=== PATIENT | female | born 1965 | race Caucasian/White ===

== ENCOUNTER 2018-04-17 13:04 | Emergency (ER) | payer MEDICARE ==
[~2018-04-17] VITALS: Ht 172.7 cm; Wt 86.4 kg
[~2018-04-17 13:04] MED LIST: AMITRIPTYLINE100 MG PO; HYDROCODONE-APA1 TAB PO; KEFLEX500 MG PO; MONODOX100 MG PO; RISPERDAL2 MG PO; VIBRAMYCIN 100100 MG PO; XANAX2 MG PO
[2018-04-17 13:07] VITALS: Ht 172.7 cm; Wt 86.4 kg
[2018-04-17 13:37] LABS: EOSINOPHILS 6.7 % (0-7); HEMATOCRIT 37.5 % (36.0-48.0); HEMOGLOBIN 11.7 g/dL (12-16); IMMATURE GRANULOCYTES 0.4 % (0-5); MCH 27.1 pg (26.0-34.0); MCHC 31.2 g/dL (31.0-37.0); MEAN PLATELET VOLUME 9.9 fL (7.4-10.4); MONOCYTES 14.9 % (2-11); RBC 4.31 10x6/uL (4.00-5.40); RDW 14.1 % (11.5-14.5); WBC 8.2 10x3/uL (4.8-10.8)
[2018-04-17 13:49] LABS: PLATELET COUNT 206 10x3/uL (130-400)
[2018-04-17 14:18] LABS: ALBUMIN 2.8 g/dL (3.4-5.0); ALKALINE PHOSPHATASE 126 U/L (46-116); ALT (SGPT) 30 U/L (10-68); BILIRUBIN - TOTAL 0.26 mg/dL (0.2-1.3); CALC OSMOLALITY 277 mosm/kg (275-300); CALCIUM 9.3 mg/dL (8.5-10.1); CARBON DIOXIDE 31.9 mmol/L (21.0-32.0); CHLORIDE - SERUM 103 mmol/L (98-107); CREATININE - SERUM 0.7 mg/dL (0.6-1.3); GLUCOSE 95 mg/dL (74-106); POTASSIUM - SERUM 4.1 mmol/L (3.5-5.1); PROTEIN - SERUM 7.6 g/dL (6.4-8.2); SODIUM 139 mmol/L (136-145); UREA NITROGEN 13 mg/dL (7-18); eGFR NON AFRICAN AMERICAN > 90 mL/min (90-120)
[2018-04-17 15:00] VITALS: BP 150/84
[2018-04-17] MEDS ORDERED: CLEOCIN HCL300 MG PO (15:47)
[2018-04-17 17:48] VITALS: BP 104/72
== END 2018-04-17 17:50 | disposition left against medical advice (07) ==
LOC: D.ER 13:04 → D.EDHOLD 15:01 → D.ER 15:01
PROVIDERS: Emergency Medicine
DX: L03.115 Cellulitis of right lower limb (principal); M79.671 Pain in right foot; B19.20 Unspecified viral hepatitis C without hepatic coma; Z86.59 Personal history of other mental and behavioral disorders; F17.200 Nicotine dependence, unspecified, uncomplicated

== ENCOUNTER 2018-07-30 17:56 | Emergency (ER) | payer MEDICARE ==
[~2018-07-30] VITALS: Ht 172.7 cm; Wt 100.0 kg
[~2018-07-30 17:56] MED LIST changes: +CLEOCIN HCL300 MG PO
[2018-07-30 17:59] VITALS: Ht 172.7 cm; Wt 100.0 kg
[2018-07-30 18:42] LABS: BASOPHILS 1.2 % (0-2); HEMATOCRIT 35.7 % (36.0-48.0); HEMOGLOBIN 11.3 g/dL (12-16); IMMATURE GRANULOCYTES 0.3 % (0-5); MCH 27.1 pg (26.0-34.0); MCHC 31.7 g/dL (31.0-37.0); MCV 85.6 fL (80.0-100.0); MEAN PLATELET VOLUME 9.9 fL (7.4-10.4); MONOCYTES 10.1 % (2-11); NEUTROPHILS 42.4 % (40-80); RBC 4.17 10x6/uL (4.00-5.40); RDW 14.6 % (11.5-14.5); WBC 6.4 10x3/uL (4.8-10.8)
[2018-07-30 19:07] LABS: PLATELET COUNT 335 10x3/uL (130-400)
[2018-07-30 19:43] LABS: ALBUMIN 2.8 g/dL (3.4-5.0); ALKALINE PHOSPHATASE 214 U/L (46-116); ALT (SGPT) 98 U/L (10-68); BILIRUBIN - TOTAL 0.02 mg/dL (0.2-1.3); CALC OSMOLALITY 278 mosm/kg (275-300); CARBON DIOXIDE 31.5 mmol/L (21.0-32.0); CHLORIDE - SERUM 104 mmol/L (98-107); CREATININE - SERUM 0.7 mg/dL (0.6-1.3); GLUCOSE 105 mg/dL (74-106); SODIUM 141 mmol/L (136-145); UREA NITROGEN 8 mg/dL (7-18); URIC ACID 4.6 mg/dL (2.6-7.2); eGFR NON AFRICAN AMERICAN > 90 mL/min (90-120)
[2018-07-30] MEDS ORDERED: NORCO 7.5/325 T1 TA1 PO ×2 (19:56→19:57)
[2018-07-30] MEDS ORDERED: KEFLEX500 MG PO (19:57)
[2018-07-30 20:40] VITALS: BP 113/62
== END 2018-07-30 20:40 | disposition home or self-care (01) ==
LOC: D.ER 17:56
PROVIDERS: Emergency Medicine; Family Medicine
DX: M70.22 Olecranon bursitis, left elbow (principal); Y93.89 Activity, other specified; L03.90 Cellulitis, unspecified; I50.9 Heart failure, unspecified; F17.200 Nicotine dependence, unspecified, uncomplicated

== ENCOUNTER → 2020-12-30 11:14 | Outpatient (CLI) | payer MEDICARE ==
[2018-07-30 17:59] VITALS: BMI 33.5
--- NOTE | 2020-12-27 15:29 | NUR ---
ATTEMPTED TO CALL NUMBER PROVIDED TO CONFIRM APPT ON WEDNESDAY - UNSUCCESSFUL
[~2020-12-30 11:14] MED LIST changes: +NORCO 7.5/325 T1 TA1 PO; +SEROQUEL400 MG
== END | disposition home or self-care (01) ==
LOC: D.RAD 11:14
PROVIDERS: ATTEND Nurse Practitioner Family
DX: M16.11 Unilateral primary osteoarthritis, right hip (principal)

== ENCOUNTER 2020-12-30 12:39 | Inpatient (IN) | payer MEDICARE ==
[~2020-12-30] VITALS: Ht 172.7 cm; Wt 100.0 kg
[~2020-12-30 12:39] MED LIST changes: -SEROQUEL400 MG
[2020-12-30 13:35] LABS: BASOPHILS 0.6 % (0-2); EOSINOPHILS 2.5 % (0-7); HEMATOCRIT 27.9 % (36.0-48.0); HEMOGLOBIN 7.6 g/dL (12-16); IMMATURE GRANULOCYTES 0.2 % (0-5); LYMPHOCYTE ABS# 1.97 10x3/uL (1.18-3.74); LYMPHOCYTES 22.5 % (15-50); MCHC 27.2 g/dL (31.0-37.0); MEAN PLATELET VOLUME 9.3 fL (7.4-10.4); MONOCYTES 15.3 % (2-11); NEUTROPHIL ABS# 5.16 10x3/uL (1.56-6.13); NEUTROPHILS 58.9 % (40-80); PLATELET COUNT 319 10x3/uL (130-400); RBC 4.23 10x6/uL (4.00-5.40); RDW 19.3 % (11.5-14.5); WBC 8.8 10x3/uL (4.8-10.8)
[2020-12-30 13:41] LABS: CALC OSMOLALITY 271 mosm/kg (275-300); CALCIUM 9.2 mg/dL (8.5-10.1); CARBON DIOXIDE 30.5 mmol/L (21.0-32.0); CHLORIDE - SERUM 101 mmol/L (98-107); CREATININE - SERUM 0.8 mg/dL (0.6-1.3); GLUCOSE 101 mg/dL (74-106); POTASSIUM - SERUM 3.3 mmol/L (3.5-5.1); SODIUM 136 mmol/L (136-145); UREA NITROGEN 12 mg/dL (7-18); eGFR NON AFRICAN AMERICAN 79 mL/min (90-120)
[2020-12-30 13:51] LABS: APTT 30.2 SECONDS (22.8-39.4); INR 1.11 (0.85-1.17); PROTIME 13.3 SECONDS (11.6-15.0)
[2020-12-30 13:55] LABS: D-DIMER-QUANTITATIVE 1.59 ug/mLFEU (0.20-0.54)
[2020-12-30 13:59] LABS: ALBUMIN 2.5 g/dL (3.4-5.0); ALKALINE PHOSPHATASE 209 U/L (30-120); ALT (SGPT) 33 U/L (10-68); BILIRUBIN - TOTAL 0.35 mg/dL (0.2-1.3); CREATINE KINASE 36 UL (21-215); PROTEIN - SERUM 8.4 g/dL (6.4-8.2); TROPONIN-I < 0.017 ng/mL (0.000-0.060)
[2020-12-30 15:53] VITALS: BP 100/49
--- NOTE | 2020-12-30 16:25 | NUR ---
PT ARRIVED VIA WHEELCHAIR AT THIS TIME FROM ER WITH TRANSFER STAFF. ALL BELONGINGS WITH PT TIME OF ARRIVAL. RR EVEN NON LABORED ON ROOM AIR. PT AWAKE AND ALERT, APPEARS DROWSY. PT ANSWERS QUESTIONS APPROP. IV INFUSING WITHOUT DIFFICULTY. LLE REDDENED, SWOLLEN AND TENDER TO TOUCH. NO NEEDS VOICED AT THIS TIME. MEDS GIVEN PER EMAR. CLWR. WILL CONTINUE TO MONITOR
[2020-12-30 16:48] VITALS: BP 104/55; Ht 172.7 cm; Wt 100.0 kg
[2020-12-30] MEDS ORDERED: SEROQUEL400 MG (17:03)
[2020-12-30 18:09] LABS: IRON 11 ug/dl (35-150)
[2020-12-30 18:10] LABS: % SATURATION 3 % (15-55); TOTAL IRON BIND CAPACITY 336 ug/dl (260-445); UNSAT IRON BIND CAPACITY 325 ug/dl (150-375)
[2020-12-30 20:17] LABS: ERYTHROCYTE SEDIMENTATION RATE 77 mm/hr (0-30)
[2020-12-30 21:36] VITALS: BP 95/42
--- NOTE | 2020-12-30 23:30 | NUR ---
I have reviewed this patient and I concur with the Shift Assessment completed by the Licensed Practical Nurse today this shift.
--- NOTE | 2020-12-31 01:00 | NUR ---
ELEVATED TEMP. REFUSED PRN TYLENOL, STATES SHE HAS HEP C. REQUESTS XANAX AND MORPHINE. INFORMED PT BP HAS BEEN LOW THROUGHOUT SHIFT AND CANNOT HAVE PRN MEDICATION THAT MAY LOWER IT FURTHER
[2020-12-31 01:23] VITALS: BP 102/42
[2020-12-31 04:00] VITALS: BP 115/56
[2020-12-31 06:21] LABS: ALBUMIN 2.1 g/dL (3.4-5.0); ALKALINE PHOSPHATASE 251 U/L (30-120); BILIRUBIN - TOTAL 0.26 mg/dL (0.2-1.3); CALC OSMOLALITY 274 mosm/kg (275-300); CALCIUM 8.5 mg/dL (8.5-10.1); CHLORIDE - SERUM 102 mmol/L (98-107); CREATININE - SERUM 0.7 mg/dL (0.6-1.3); GLUCOSE 96 mg/dL (74-106); PHOSPHOROUS 3.7 mg/dL (2.5-4.9); PROTEIN - SERUM 7.2 g/dL (6.4-8.2); SODIUM 138 mmol/L (136-145); UREA NITROGEN 9 mg/dL (7-18); eGFR NON AFRICAN AMERICAN > 90 mL/min (90-120)
[2020-12-31 06:22] LABS: ALT (SGPT) 42 U/L (10-68); POTASSIUM - SERUM 3.9 mmol/L (3.5-5.1)
[2020-12-31 06:51] LABS: BASOPHILS 0.6 % (0-2); EOSINOPHILS 3.2 % (0-7); HEMATOCRIT 25.4 % (36.0-48.0); IMMATURE GRANULOCYTES 0.3 % (0-5); LYMPHOCYTE ABS# 2.01 10x3/uL (1.18-3.74); LYMPHOCYTES 21.4 % (15-50); MCHC 26.8 g/dL (31.0-37.0); MCV 66.7 fL (80.0-100.0); MEAN PLATELET VOLUME 9.4 fL (7.4-10.4); MONOCYTES 15.1 % (2-11); NEUTROPHIL ABS# 5.57 10x3/uL (1.56-6.13); NEUTROPHILS 59.4 % (40-80); PLATELET COUNT 321 10x3/uL (130-400); RBC 3.81 10x6/uL (4.00-5.40); RDW 19.4 % (11.5-14.5); WBC 9.4 10x3/uL (4.8-10.8)
[2020-12-31 06:53] LABS: HEMOGLOBIN 6.8 g/dL (12-16); MCH 17.8 pg (26.0-34.0)
[2020-12-31 10:27] VITALS: BP 113/64
[2020-12-31 13:58] VITALS: BP 117/59
[2020-12-31 18:31] VITALS: BP 127/66
[2020-12-31 20:00] VITALS: BP 112/54
[2021-01-01 02:02] VITALS: BP 111/52
[2021-01-01 06:34] VITALS: BP 135/62
--- NOTE | 2021-01-01 06:58 | NUR ---
Patient received her second unit of PRBC's this shift, she tolerated it well, she appeared to rest well through the night. Pain was managed with the prescribed pain medication. She is currently resting in bed with her eyes closed.
[2021-01-01 07:45] LABS: ALBUMIN 2.2 g/dL (3.4-5.0); ALKALINE PHOSPHATASE 376 U/L (30-120); ALT (SGPT) 48 U/L (10-68); CALC OSMOLALITY 271 mosm/kg (275-300); CALCIUM 8.6 mg/dL (8.5-10.1); CHLORIDE - SERUM 102 mmol/L (98-107); CREATININE - SERUM 0.8 mg/dL (0.6-1.3); GLUCOSE 89 mg/dL (74-106); MAGNESIUM - SERUM 1.9 mg/dL (1.8-2.4); PHOSPHOROUS 3.3 mg/dL (2.5-4.9); POTASSIUM - SERUM 3.9 mmol/L (3.5-5.1); PROTEIN - SERUM 7.2 g/dL (6.4-8.2); SODIUM 138 mmol/L (136-145); eGFR NON AFRICAN AMERICAN 79 mL/min (90-120)
[2021-01-01 07:58] LABS: UREA NITROGEN 5 mg/dL (7-18)
[2021-01-01 08:14] VITALS: BP 138/66
[2021-01-01 10:59] LABS: BASOPHILS 0.8 % (0-2); EOSINOPHILS 3.9 % (0-7); IMMATURE GRANULOCYTES 1.1 % (0-5); LYMPHOCYTE ABS# 1.74 10x3/uL (1.18-3.74); LYMPHOCYTES 20.7 % (15-50); MCH 20.3 pg (26.0-34.0); MCHC 29.4 g/dL (31.0-37.0); MEAN PLATELET VOLUME 9.4 fL (7.4-10.4); MONOCYTES 11.6 % (2-11); NEUTROPHIL ABS# 5.19 10x3/uL (1.56-6.13); NEUTROPHILS 61.9 % (40-80); PLATELET COUNT 317 10x3/uL (130-400); RDW 21.9 % (11.5-14.5); WBC 8.4 10x3/uL (4.8-10.8)
[2021-01-01 11:03] LABS: HEMATOCRIT 32.3 % (36.0-48.0); HEMOGLOBIN 9.5 g/dL (12-16); RBC 4.68 10x6/uL (4.00-5.40)
[2021-01-01 11:48] VITALS: BP 133/68
[2021-01-01 15:42] VITALS: BP 129/67
--- NOTE | 2021-01-01 16:02 | NUR ---
SUMMONED TO PATIENT ROOM BY STAFF FOR SMELL OF SMOKE. PT DENIED SMOKING IN HER ROOM. SEARCH OF PATIET BELONINGS WITH WITNESS COMPENSATED CIGARETTES AND HEATING FIXTURE TENDER LABELED AND PLACED IN CASSETTE.
--- NOTE | 2021-01-01 16:32 | NUR ---
INFORMED BY PATIENT THAT HER BROTHER TESTED POSITIVE FOR COVID TODAY AND HE ACTUALLY BROUGHT HER TO THE HOSPITAL AND VISITED HER YESTERDAY EVENING DURING VISITATION HOURS. PT DENIES ANY COUGH SOB HEADACHE NO FEVER. NOTIFIED [id number] CONTROL AND NURSE BLOCK GREASER. WILL CONTINUE TO MONITOR PATIENT AND NOTIFY STAFF IN DIRECT CARE OF PATIENT.
[2021-01-01 20:00] VITALS: BP 129/72
[2021-01-02 00:08] LABS: BILIRUBIN NEGATIVE (NEGATIVE); KETONE NEGATIVE (NEGATIVE); NITRITE NEGATIVE (NEGATIVE); UROBILINOGEN NORMAL mg/dL (< 2)
[2021-01-02 04:00] VITALS: BP 149/70
--- NOTE | 2021-01-02 04:09 | NUR ---
I have reviewed this patient and I concur with the Shift Assessment completed by the Licensed Practical Nurse today this shift.
--- NOTE | 2021-01-02 09:51 | NUR ---
AT 0700 PT STATES SHE WANTS TO LEAVE AMA. CALLED TISH AGUILA. PAPERWORK SIGNED. BELONGINGS GATHERED FROM [facility] WHERE PATIENT CAME FROM [facility]. PT ESCORTED OUT OF FACILITY.
== END 2021-01-02 07:51 | disposition left against medical advice (07) | DRG 602 ==
LOC: D.ER 12:39 → D.MS 15:43 → D.M2 15:43
PROVIDERS: Family Medicine; Orthopaedic Surgery; ADMIT Emergency Medicine; ATTEND Emergency Medicine
DX: L03.116 Cellulitis of left lower limb (principal); J18.9 Pneumonia, unspecified organism; E87.6 Hypokalemia; I11.0 Hypertensive heart disease with heart failure; I50.9 Heart failure, unspecified; F41.9 Anxiety disorder, unspecified; D50.9 Iron deficiency anemia, unspecified; Z72.0 Tobacco use; R60.0 Localized edema; S80.822D Blister (nonthermal), left lower leg, subsequent encounter; X19.XXXD Contact with other heat and hot substances, subsequent encounter; M19.90 Unspecified osteoarthritis, unspecified site; R91.1 Solitary pulmonary nodule